=== PATIENT | male | born 1985 | race Caucasian/White ===

== ENCOUNTER 2016-10-06 20:34 | Emergency (ER) | payer SELFPAY ==
[~2016-10-06] VITALS: Ht 177.8 cm; Wt 85.0 kg
[2016-10-06] MEDS ORDERED: BACITRACIN ZINC OINT UDPKT TOP ONE (22:15)
[2016-10-06] MEDS ORDERED: IBUPROFEN 600MG TABLET PO ONE (22:15)
[2016-10-06] MEDS ORDERED: TETANUS, DIPHTHERIA, PERTUSSIS VAC/PF 0.5ML (>7YR OLD) IM ONE (22:15)
[2016-10-06] MEDS ORDERED: LIDOCAINE HCL/EPINEPHRINE 1%-EPI 1:100,000 20 ML VIAL MC ONE (22:15)
[2016-10-06 22:41] VITALS: BP 145/77
== END 2016-10-06 23:46 | disposition home or self-care (01) ==
LOC: ER 23:28
DX: L02.411 Cutaneous abscess of right axilla (principal); L03.111 Cellulitis of right axilla; R03.0 Elevated blood-pressure reading, without diagnosis of hypertension
CPT/HCPCS: 10060; 90471; 90715; 99283; J3490

== ENCOUNTER 2016-10-08 17:22 | Emergency (ER) | payer SELFPAY ==
[~2016-10-08] VITALS: Ht 180.3 cm; Wt 81.0 kg
[2016-10-08] MEDS ORDERED: BACITRACIN ZINC OINT UDPKT TOP ONE (20:30)
[2016-10-08 20:40] VITALS: BP 126/80
[2016-10-09] MEDS ORDERED: LIDOCAINE HCL/EPINEPHRINE 1%-EPI 1:100,000 20 ML VIAL ONE (23:22)
== END 2016-10-08 20:49 | disposition home or self-care (01) ==
LOC: ER 17:22
DX: Z48.01 Encounter for change or removal of surgical wound dressing (principal); L02.411 Cutaneous abscess of right axilla; F17.200 Nicotine dependence, unspecified, uncomplicated
CPT/HCPCS: 99282; J3490

== ENCOUNTER 2019-06-15 19:34 | Emergency (ER) | payer SELFPAY ==
[~2019-06-15] VITALS: Ht 180.3 cm; Wt 66.0 kg
[2019-06-15 20:19] VITALS: BP 101/71
== END 2019-06-15 22:57 | disposition left against medical advice (07) ==
LOC: ER 22:04
DX: M79.89 Other specified soft tissue disorders (principal); Z53.21 Procedure and treatment not carried out due to patient leaving prior to being seen by health care provider